=== PATIENT | female | born 1980 ===

== ENCOUNTER 2016-09-15 19:46 | Emergency (ER) | payer OTHER ==
[~2016-09-15] VITALS: Ht 154.9 cm; Wt 88.0 kg
[~2016-09-15 19:46] MED LIST: CENTTAB; DEPO150I IM; NAPR-697 PO
[2016-09-15 19:48] VITALS: BP 136/65; PULSE 76; RESP 16; TEMP 99.4; O2SAT 100
--- NOTE | 2016-09-15 20:19 | PD ---
HPI Chief Complaint: Injury Time Seen by Provider: 20:13 Travel History International Travel<30 days: No Contact w/Intl Traveler<30days: No Traveled to known affect area: No History of Present Illness HPI 35-year-old black female presents to emergency Department with complaints of right lateral calf tenderness. She states that she stepped on a earring backing on Saturday. She states that had gone to the bottom of her leather soled shoe up into her foot approximately 1 cm. She states that she went to [facility] and had a tetanus. She states that she did not take any medications she's been walking on the side of her foot to 2 tenderness. She 's noted today that she's having some pain and cramping to the lateral aspect of her calf. Patient states that the puncture wound is actually feeling much better. She denies any posterior calf pain no medial Tenderness. No thigh or groin pain. She denies any shortness of breath. No nausea vomiting. No palpitations. No fever chills. No discharge. PFSH Past Medical History Narrative Medical Denies diabetes Ovarian cysts, uterine fibroids Immunizations Current: Yes Tetanus Vaccination: < 5 Years Influenza Vaccination: No ?: Not Past Surgical History Narrative Surgical Laparoscopy for ovarian cysts, uterine fibroid surgery Social History Alcohol Use: No Tobacco Use: No Substance Use: No Allergies-Medications (Allergen,Severity, Reaction): Coded Allergies: Blanco (Verified Allergy, Intermediate, 09/15/16) Seafood (Verified Allergy, Intermediate, Hives, 09/15/16) Reported Meds & Prescriptions Reported Meds & Active Scripts Active Review of Systems Except as stated in HPI: all other systems reviewed are Neg Physical Exam Narrative GENERAL: This is a well-nourished, well-developed patient, in no apparent distress. SKIN: No rashes, ecchymoses or lesions. Warm and dry. HEAD: Atraumatic. Normocephalic. EYES: PERRL, EOMI, no discharge or injection. No scleral icterus. EARS: Clear NOSE: Nasal turbinates appear normal. THROAT: Mucosa pink and moist. Airway patent. NECK: Trachea midline. supple, moves head freely. LUNGS: Clear to auscultation. CV: Regular in rhythm. ABDOMEN: Soft nontender. EXT: No clubbing cyanosis or edema. Examination the right lower leg reveals no Homans sign. No posterior calf tenderness. No erythema, warmth. She has minimal right anterior lateral tibialis tenderness from walking on the side of her foot. There is a healing puncture wound to the distal lateral plantar surface of the foot. There is no erythema, warmth or discharge. No tenderness. Patient has intact pulses with good sensation distally. Data Data Last Documented VS Vital Signs Date Time Temp Pulse Resp B/P Pulse Ox O2 Delivery O2 Flow Rate FiO2 09/15/16 19:48 99.4 76 16 136/65 100 Room Air MDM Medical Decision Making Medical Screen Exam Complete: Yes Emergency Medical Condition: Yes Differential Diagnosis Differential diagnosis: DVT, cellulitis, abscess, strain Narrative Course The patient has strained her right anterior tibialis muscle from walking on the side of her foot due to the puncture wound. There is no signs of DVT. She has intact sensation with good pulses. No signs of infection. Diagnosis Primary Impression: Strain of right tibialis anterior muscle Patient Instructions: General Instructions Additional Instructions: Rest. Comfortable shoes. Ice for any acute swelling or pain. 3 Advil every 6 hours. Follow-up with your doctor in 3-7 days. Monitor for any infection. If any erythema, increasing pain, warmth or discharge develops return to the emergency Department immediately. Return to the ER if any problems. Disposition: 01 DISCHARGE HOME Condition: Stable Aquiles Fabian September 15, 2016 20:19
== END 2016-09-15 20:38 | disposition home or self-care (01) ==
LOC: NEPK 19:46
DX: S86.211A Strain of muscle(s) and tendon(s) of anterior muscle group at lower leg level, right leg, initial encounter (principal); X50.9XXA Other and unspecified overexertion or strenuous movements or postures, initial encounter; Y93.01 Activity, walking, marching and hiking
CPT/HCPCS: 99283